=== PATIENT | female | born 1935 | race Hispanic/Latino ===

== ENCOUNTER → 2020-04-27 | Outpatient (CLI) | payer MEDICARE | END | disposition home or self-care (01) | LOC: SHCH 15:10 | PROVIDERS: ATTEND Internal Medicine Cardiovascular Disease | DX: I08.0 Rheumatic disorders of both mitral and aortic valves (principal); R55 Syncope and collapse | CPT/HCPCS: 93306 ==

== ENCOUNTER 2020-11-05 20:09 | Inpatient (IN) | payer MEDICARE ==
[~2020-11-05] VITALS: Ht 154.9 cm; Wt 67.2 kg
[~2020-11-05 20:09] MED LIST: ETOMIDATE 2 MG/ML 10 ML VIAL IVP ONE; ROCURONIUM BROMIDE 10MG/1ML 5ML VL IV ONE
[2020-11-05 20:35] LABS: BASOPHILS % (AUTO) 0.3 % (0.0-5.0); EOSINOPHILS % (AUTO) 1.3 % (0.0-8.0); HEMATOCRIT 29.5 % (36-48); LYMPHOCYTES % (AUTO) 13.2 % (21.0-51.0); MEAN CORPUSCULAR HEMOGLOBIN 29.9 pg (27.0-33.0); MEAN CORPUSCULAR HGB CONC 32.5 g/dL (32.0-36.0); MEAN CORPUSCULAR VOLUME 91.9 fL (79-99); MONOCYTES % (AUTO) 7.6 % (3.0-13.0); NEUTROPHILS % (AUTO) 77.2 % (40.0-77.0); PLATELET COUNT (AUTO) 117 K/uL (130-400); RED BLOOD CELL COUNT(AUTO) 3.21 MIL/uL (4.00-5.50); RED CELL DISTRIBUTION WIDTH 14.4 % (11.0-15.5); WHITE BLOOD COUNT (AUTO) 7.5 K/uL (4.8-10.8)
[2020-11-05 20:50] LABS: INR 1.22 (0.85-1.15); PROTHROMBIN TIME 13.1 SEC (9.6-11.6)
[2020-11-05 20:51] LABS: PARTIAL THROMBOPLASTIN TIME 28.6 SEC (26.3-35.5)
[2020-11-05 20:53] LABS: CREATININE 6.5 mg/dL (0.5-1.5); POTASSIUM 5.5 mmol/L (3.5-5.1)
[2020-11-05 20:57] LABS: BILIRUBIN,TOTAL 0.5 mg/dL (0.2-1.0); TOTAL PROTEIN, SERUM 6.3 g/dL (6.0-8.3)
[2020-11-05] MEDS ORDERED: FUROSEMIDE 10 MG/ML 2ML VIAL ONE (22:13)
[2020-11-05] MEDS ORDERED: DOBUTAMINE 250MG/D5 250ML 250 ML IV SCH (23:00)
[2020-11-05] MEDS ORDERED: ONDANSETRON HCL 4 MG/2 ML VIAL IV PRN (23:15)
[2020-11-05] MEDS ORDERED: ACETAMINOPHEN 325 MG TAB PO PRN (23:15)
[2020-11-05] MEDS ORDERED: NITROGLYCERIN 0.4 MG SL TAB SL PRN (23:15)
[2020-11-05] MEDS ORDERED: DiphenhydrAMINE HCL 50 MG/ML VIAL IV PRN (23:15)
[2020-11-05] MEDS ORDERED: GUAIFENESIN-DM 200/20 MG 10 ML PO PRN (23:15)
[2020-11-05] MEDS ORDERED: LACTULOSE 20 GM/30 ML UDCUP PO PRN (23:15)
[2020-11-05] MEDS: ATORVASTATIN CALCIUM 40 MG TABLET PO SCH (23:30)
[2020-11-05] MEDS ORDERED: DOBUTAMINE 250MG/D5 250ML 250 ML IV ONE (23:41)
[2020-11-06] VITALS (25 sets, daily range): BP systolic 82–145; BP diastolic 44–89
[2020-11-06] MEDS: ZOLPIDEM TARTRATE 5 MG TAB PO PRN (02:50)
[2020-11-06] MEDS: ACETAMINOPHEN 325 MG TAB PO PRN ×2 (02:51→17:09)
[2020-11-06] MEDS ORDERED: LISI2.5T2 PO (03:49)
[2020-11-06] MEDS ORDERED: METO25 PO (03:49)
[2020-11-06] MEDS ORDERED: FURO20TA4 PO (03:52)
[2020-11-06] MEDS ORDERED: AEC81 PO (03:52)
[2020-11-06] MEDS ORDERED: CLOP75TA32 PO (03:55)
[2020-11-06] MEDS ORDERED: ATOR40TA71 PO (03:55)
[2020-11-06] MEDS ORDERED: GABA-529 PO (03:56)
[2020-11-06] MEDS ORDERED: GLIP10TA9 PO (03:57)
[2020-11-06] MEDS ORDERED: SITA100T12 PO (03:59)
[2020-11-06] MEDS ORDERED: INSU100V37 SQ (04:13)
[2020-11-06] MEDS ORDERED: MORPHINE SULFATE 2 MG/ML 1ML SYG ONE (04:48)
[2020-11-06] MEDS ORDERED: DEXTROSE 50%-WATER 50 ML DISP.SYRIN IV ONE (06:59)
[2020-11-06] MEDS ORDERED: GLUCAGON 1MG KIT 1 MG ML IM PRN (07:00)
[2020-11-06] MEDS: INSULIN HUMULIN R 100 UNIT/ML 3ML SQ SCH ×3 (07:30→17:32)
[2020-11-06] MEDS: ASPIRIN 81MG TAB.CHEW PO SCH (09:00)
[2020-11-06] MEDS: FAMOTIDINE 20MG TAB 20 MG TAB PO SCH (09:00)
[2020-11-06] MEDS ORDERED: GABAPENTIN 100 MG CAPSULE PO SCH (09:00)
[2020-11-06] MEDS ORDERED: SODIUM POLYSTYRENE SULFONATE 15 GM/60 ML ML RC SCH (12:30)
[2020-11-06] MEDS: MIDODRINE HCL 5 MG TABLET PO SCH ×2 (14:00→20:16)
[2020-11-06] MEDS ORDERED: SODIUM CHLORIDE 0.9% 500ML 500 ML IV ONE (14:26)
[2020-11-06] MEDS ORDERED: NALOXONE HCL 0.4 MG/1 ML ML ONE (14:31)
[2020-11-06] MEDS ORDERED: NOREPINEPHRINE 4MG/NS 250ML 250 ML IV ONE (14:41)
[2020-11-06] MEDS ORDERED: FENTANYL CITRATE PF 0.05 MG/ML 1,000 MCG in SODIUM CHLORIDE 0.9% 100 ML IVPB SCH (14:45)
[2020-11-06] MEDS ORDERED: MIDAZOLAM 100MG-0.9% NS 100ML 100ML BAG IV ONE (14:45)
[2020-11-06] MEDS ORDERED: MIDAZOLAM 100MG-0.9% NS 100ML 100 ML IV SCH (15:15)
[2020-11-06] MEDS ORDERED: FENTANYL 2500MCG+NS 250ML 250 ML IV SCH (15:15)
[2020-11-06 15:23] LABS: ABG BASE EXCESS -4.4 mmol/L (-2.0-3.0); ABG HCO3 18.2 mmol/L (21.0-28.0); ABG OXYGEN SATURATION 99.3 % (95.0-99.0); ABG PCO2 26 mmHg (32-45)
[2020-11-06] MEDS: ZOSYN 3.375GM+NS 50ML 50 ML IV SCH (15:30)
[2020-11-06] MEDS ORDERED: CALCIUM GLUCONATE 2 GM in SODIUM CHLORIDE 0.9% 100 ML IV SCH (15:30)
[2020-11-06 17:01] LABS: HEMATOCRIT 29.5 % (36-48); MEAN CORPUSCULAR HEMOGLOBIN 30.1 pg (27.0-33.0); MEAN CORPUSCULAR HGB CONC 32.9 g/dL (32.0-36.0); MEAN CORPUSCULAR VOLUME 91.6 fL (79-99); RED BLOOD CELL COUNT(AUTO) 3.22 MIL/uL (4.00-5.50); RED CELL DISTRIBUTION WIDTH 14.4 % (11.0-15.5); WHITE BLOOD COUNT (AUTO) 11.8 K/uL (4.8-10.8)
[2020-11-06] MEDS ORDERED: INSULIN HUMULIN R 100 UNIT/ML 3ML IV SCH (17:15)
[2020-11-06] MEDS ORDERED: DEXTROSE 50%-WATER 25 GM/50 ML VIAL IV SCH (17:15)
[2020-11-06] MEDS ORDERED: SODIUM BICARB 50MEQ 50ML VIAL IV SCH ×2 (17:20→19:30)
[2020-11-06 17:24] LABS: POTASSIUM 5.1 mmol/L (3.5-5.1); THYROID STIMULATING HORMONE 3.65 uIU/mL (0.36-3.74)
[2020-11-06] MEDS: SODIUM CHLORIDE 0.9% 1000ML 1,000 ML IV SCH (18:12)
[2020-11-06] MEDS: ATORVASTATIN CALCIUM 40 MG TABLET PO SCH (20:14)
[2020-11-06 23:23] LABS: APPEARANCE,URINE Turbid (CLEAR); BILIRUBIN,URINE Negative (NEGATIVE); COLOR,URINE Orange (YELLOW); GLUCOSE, URINE (UA) Negative (NEGATIVE); KETONES,URINE Negative (NEGATIVE); LEUKOCYTE ESTERASE ,URINE Large (NEGATIVE); NITRATE,URINE Negative (NEGATIVE); OCCULT BLOOD,URINE Large (NEGATIVE); PROTEIN,URINE POS 2+ mg/dL (NEGATIVE); UROBILINOGEN,URINE 0.2 mg/dL (0.2-1.0)
[2020-11-06 23:25] LABS: SODIUM,URINE RANDOM 40 mmol/l (40-220)
[2020-11-06 23:33] LABS: WBC,URINE TNTC /HPF (0-1)
[2020-11-06 23:34] LABS: BACTERIA,URINE Few /HPF (None Seen); YEAST,URINE BUDDING Moderate /HPF (None Seen)
[2020-11-07] VITALS (41 sets, daily range): BP systolic 84–117; BP diastolic 48–96
[2020-11-07] MEDS: INSULIN HUMULIN R 100 UNIT/ML 3ML SQ SCH ×6 (00:31→23:47)
[2020-11-07] MEDS: ZOSYN 3.375GM+NS 50ML 50 ML IV SCH ×2 (03:01→15:03)
[2020-11-07 03:34] LABS: BASOPHILS % (AUTO) 0.2 % (0.0-5.0); EOSINOPHILS % (AUTO) 1.3 % (0.0-8.0); HEMATOCRIT 27.5 % (36-48); MEAN CORPUSCULAR HEMOGLOBIN 29.2 pg (27.0-33.0); MEAN CORPUSCULAR HGB CONC 32.7 g/dL (32.0-36.0); MEAN CORPUSCULAR VOLUME 89.3 fL (79-99); MONOCYTES % (AUTO) 7.5 % (3.0-13.0); NEUTROPHILS % (AUTO) 76.8 % (40.0-77.0); PLATELET COUNT (AUTO) 133 K/uL (130-400); RED BLOOD CELL COUNT(AUTO) 3.08 MIL/uL (4.00-5.50); RED CELL DISTRIBUTION WIDTH 14.5 % (11.0-15.5); WHITE BLOOD COUNT (AUTO) 10.3 K/uL (4.8-10.8)
[2020-11-07 03:46] LABS: % IRON SATURATION 13.6 % (22-44)
[2020-11-07 04:00] LABS: CREATININE 6.8 mg/dL (0.5-1.5); PHOSPHORUS 6.7 mg/dL (2.5-4.9); POTASSIUM 4.2 mmol/L (3.5-5.1)
[2020-11-07] MEDS: NOREPINEPHRINE 4MG/NS 250ML 250 ML IV SCH (04:19)
[2020-11-07] MEDS: SODIUM CHLORIDE 0.9% 1000ML 1,000 ML IV SCH (05:36)
[2020-11-07 06:45] LABS: ABG BASE EXCESS -0.7 mmol/L (-2.0-3.0); ABG HCO3 21.8 mmol/L (21.0-28.0); ABG OXYGEN SATURATION 97.6 % (95.0-99.0); ABG PCO2 30 mmHg (32-45)
[2020-11-07] MEDS: MIDODRINE HCL 5 MG TABLET PO SCH ×3 (08:22→21:10)
[2020-11-07] MEDS: FAMOTIDINE 20MG TAB 20 MG TAB PO SCH (08:23)
[2020-11-07] MEDS: ASPIRIN 81MG TAB.CHEW PO SCH (08:23)
[2020-11-07 11:24] LABS: INR 1.22 (0.85-1.15); PROTHROMBIN TIME 13.1 SEC (9.6-11.6)
[2020-11-07 11:26] LABS: PARTIAL THROMBOPLASTIN TIME 28.5 SEC (26.3-35.5)
[2020-11-07] MEDS ORDERED: EPOETIN ALFA-EPBX (ESRD) 10,000 UNIT/ML VIAL SQ SCH (11:45)
[2020-11-07] MEDS ORDERED: COMPOUND IV MISC 1 EACH IVSOLN MISC PRN (12:30)
[2020-11-07] MEDS: IRON SUCROSE COMPLEX 100 MG in SODIUM CHLORIDE 0.9% 50 ML IV SCH (12:39)
[2020-11-07] MEDS: DEXTROSE 50%-WATER 50 ML DISP.SYRIN IV PRN (13:17)
[2020-11-07] MEDS ORDERED: DEXTROSE 10%-WATER 1,000 ML IV SCH (13:45)
[2020-11-07] MEDS: ATORVASTATIN CALCIUM 40 MG TABLET PO SCH (21:10)
[2020-11-08] VITALS (23 sets, daily range): BP systolic 86–116; BP diastolic 36–81
[2020-11-08] MEDS: NOREPINEPHRINE 4MG/NS 250ML 250 ML IV SCH (02:43)
[2020-11-08] MEDS: ZOSYN 3.375GM+NS 50ML 50 ML IV SCH ×2 (02:44→14:55)
[2020-11-08 03:33] LABS: BASOPHILS % (AUTO) 0.3 % (0.0-5.0); EOSINOPHILS % (AUTO) 1.5 % (0.0-8.0); HEMATOCRIT 29.8 % (36-48); LYMPHOCYTES % (AUTO) 10.6 % (21.0-51.0); MEAN CORPUSCULAR HEMOGLOBIN 29.7 pg (27.0-33.0); MEAN CORPUSCULAR HGB CONC 32.9 g/dL (32.0-36.0); MEAN CORPUSCULAR VOLUME 90.3 fL (79-99); MONOCYTES % (AUTO) 6.7 % (3.0-13.0); NEUTROPHILS % (AUTO) 80.5 % (40.0-77.0); PLATELET COUNT (AUTO) 142 K/uL (130-400); RED CELL DISTRIBUTION WIDTH 15.1 % (11.0-15.5); WHITE BLOOD COUNT (AUTO) 12.8 K/uL (4.8-10.8)
[2020-11-08] MEDS: INSULIN HUMULIN R 100 UNIT/ML 3ML SQ SCH ×5 (03:43→20:27)
[2020-11-08 03:44] LABS: POTASSIUM 4.9 mmol/L (3.5-5.1)
[2020-11-08 04:30] LABS: ABG BASE EXCESS -2.3 mmol/L (-2.0-3.0); ABG HCO3 19.6 mmol/L (21.0-28.0); ABG OXYGEN SATURATION 97.6 % (95.0-99.0); ABG PCO2 27 mmHg (32-45)
[2020-11-08] MEDS: FLUCONAZOLE 200 MG/NS 100 ML 100 ML IV SCH (08:44)
[2020-11-08] MEDS: MIDODRINE HCL 5 MG TABLET PO SCH ×3 (08:45→20:28)
[2020-11-08] MEDS: ASPIRIN 81MG TAB.CHEW PO SCH (08:45)
[2020-11-08] MEDS: FAMOTIDINE 20MG TAB 20 MG TAB PO SCH (08:47)
[2020-11-08] MEDS: IRON SUCROSE COMPLEX 100 MG in SODIUM CHLORIDE 0.9% 50 ML IV SCH (08:47)
[2020-11-08] MEDS: SODIUM CHLORIDE 1,000 MG TAB PO SCH ×2 (11:43→20:28)
[2020-11-08] MEDS: ATORVASTATIN CALCIUM 40 MG TABLET PO SCH (20:28)
[2020-11-09] VITALS (28 sets, daily range): BP systolic 89–114; BP diastolic 49–70
[2020-11-09] MEDS: INSULIN HUMULIN R 100 UNIT/ML 3ML SQ SCH ×7 (00:31→23:10)
[2020-11-09] MEDS: NOREPINEPHRINE 4MG/NS 250ML 250 ML IV SCH (00:33)
[2020-11-09 02:08] LABS: BASOPHILS % (AUTO) 0.3 % (0.0-5.0); EOSINOPHILS % (AUTO) 1.6 % (0.0-8.0); HEMATOCRIT 28.7 % (36-48); LYMPHOCYTES % (AUTO) 14.6 % (21.0-51.0); MEAN CORPUSCULAR HEMOGLOBIN 29.5 pg (27.0-33.0); MEAN CORPUSCULAR HGB CONC 32.4 g/dL (32.0-36.0); MEAN CORPUSCULAR VOLUME 91.1 fL (79-99); NEUTROPHILS % (AUTO) 77.1 % (40.0-77.0); PLATELET COUNT (AUTO) 123 K/uL (130-400); RED BLOOD CELL COUNT(AUTO) 3.15 MIL/uL (4.00-5.50); RED CELL DISTRIBUTION WIDTH 15.3 % (11.0-15.5); WHITE BLOOD COUNT (AUTO) 11.3 K/uL (4.8-10.8)
[2020-11-09 02:15] LABS: CREATININE 7.1 mg/dL (0.5-1.5); POTASSIUM 4.1 mmol/L (3.5-5.1)
[2020-11-09 02:18] LABS: MAGNESIUM 2.1 mg/dL (1.80-2.40); PHOSPHORUS 6.3 mg/dL (2.5-4.9)
[2020-11-09] MEDS: PHENYLEPHRINE HCL 50 MG in SODIUM CHLORIDE 0.9% 245 ML IV PRN ×2 (02:35→19:18)
[2020-11-09 03:10] LABS: INR 1.36 (0.85-1.15); PROTHROMBIN TIME 14.4 SEC (9.6-11.6)
[2020-11-09 03:12] LABS: PARTIAL THROMBOPLASTIN TIME 36.1 SEC (26.3-35.5)
[2020-11-09] MEDS: ZOSYN 3.375GM+NS 50ML 50 ML IV SCH ×2 (03:34→15:11)
[2020-11-09] MEDS: MIDODRINE HCL 5 MG TABLET PO SCH ×3 (09:21→20:24)
[2020-11-09] MEDS: IRON SUCROSE COMPLEX 100 MG in SODIUM CHLORIDE 0.9% 50 ML IV SCH (09:21)
[2020-11-09] MEDS: ASPIRIN 81MG TAB.CHEW PO SCH (09:21)
[2020-11-09] MEDS: SODIUM CHLORIDE 1,000 MG TAB PO SCH ×2 (09:21→20:24)
[2020-11-09] MEDS: FLUCONAZOLE 200 MG/NS 100 ML 100 ML IV SCH (09:21)
[2020-11-09] MEDS: FAMOTIDINE 20MG TAB 20 MG TAB PO SCH (09:21)
[2020-11-09 16:16] LABS: APPEARANCE,URINE TURBID (CLEAR); BILIRUBIN,URINE SMALL (NEGATIVE); COLOR,URINE YELLOW (YELLOW); GLUCOSE, URINE (UA) NEGATIVE (NEGATIVE); KETONES,URINE NEGATIVE (NEGATIVE); LEUKOCYTE ESTERASE ,URINE LARGE (NEGATIVE); NITRATE,URINE NEGATIVE (NEGATIVE); OCCULT BLOOD,URINE LARGE (NEGATIVE); PROTEIN,URINE 100 mg/dL (NEGATIVE); UROBILINOGEN,URINE 0.2 mg/dL (0.2-1.0)
[2020-11-09 16:43] LABS: BACTERIA,URINE Moderate /HPF (None Seen); MUCUS,URINE Few LPF (None Seen); SQUAMOUS EPITHELIAL CELL,UR Rare /HPF (0-2); YEAST,URINE BUDDING Many /HPF (None Seen)
[2020-11-09] MEDS ORDERED: LIDOCAINE HCL 1% 20 ML VIAL ONE (16:53)
[2020-11-09] MEDS: ATORVASTATIN CALCIUM 40 MG TABLET PO SCH (20:24)
[2020-11-09] MEDS: INSULIN GLARGINE 100 UNITS/ML 10 ML VIAL SQ SCH (21:00)
[2020-11-10] VITALS (24 sets, daily range): BP systolic 85–114; BP diastolic 51–83
[2020-11-10] MEDS: ZOSYN 3.375GM+NS 50ML 50 ML IV SCH ×2 (02:58→15:21)
[2020-11-10] MEDS: INSULIN HUMULIN R 100 UNIT/ML 3ML SQ SCH ×5 (03:26→20:00)
[2020-11-10 04:57] LABS: BASOPHILS % (AUTO) 0.3 % (0.0-5.0); EOSINOPHILS % (AUTO) 2.1 % (0.0-8.0); HEMATOCRIT 26.1 % (36-48); LYMPHOCYTES % (AUTO) 12.4 % (21.0-51.0); MEAN CORPUSCULAR HEMOGLOBIN 29.4 pg (27.0-33.0); MEAN CORPUSCULAR HGB CONC 31.8 g/dL (32.0-36.0); MEAN CORPUSCULAR VOLUME 92.6 fL (79-99); MONOCYTES % (AUTO) 6.8 % (3.0-13.0); NEUTROPHILS % (AUTO) 78.1 % (40.0-77.0); PLATELET COUNT (AUTO) 105 K/uL (130-400); RED BLOOD CELL COUNT(AUTO) 2.82 MIL/uL (4.00-5.50); RED CELL DISTRIBUTION WIDTH 15.6 % (11.0-15.5)
[2020-11-10 05:13] LABS: CREATININE 7.2 mg/dL (0.5-1.5); POTASSIUM 4.4 mmol/L (3.5-5.1)
[2020-11-10] MEDS: SODIUM CHLORIDE 1,000 MG TAB PO SCH ×2 (08:45→20:27)
[2020-11-10] MEDS: FAMOTIDINE 20MG TAB 20 MG TAB PO SCH (08:45)
[2020-11-10] MEDS: IRON SUCROSE COMPLEX 100 MG in SODIUM CHLORIDE 0.9% 50 ML IV SCH (08:45)
[2020-11-10] MEDS: FLUCONAZOLE 200 MG/NS 100 ML 100 ML IV SCH (08:45)
[2020-11-10] MEDS: MIDODRINE HCL 5 MG TABLET PO SCH ×3 (08:45→20:27)
[2020-11-10] MEDS: ASPIRIN 81MG TAB.CHEW PO SCH (08:45)
[2020-11-10] MEDS: ATORVASTATIN CALCIUM 40 MG TABLET PO SCH (20:26)
[2020-11-10] MEDS: INSULIN GLARGINE 100 UNITS/ML 10 ML VIAL SQ SCH (21:00)
[2020-11-10] MEDS: PHENYLEPHRINE HCL 50 MG in SODIUM CHLORIDE 0.9% 245 ML IV PRN (22:11)
[2020-11-11] VITALS (24 sets, daily range): BP systolic 101–128; BP diastolic 54–94
[2020-11-11] MEDS: DEXTROSE 50%-WATER 50 ML DISP.SYRIN IV PRN (00:14)
[2020-11-11] MEDS: INSULIN HUMULIN R 100 UNIT/ML 3ML SQ SCH ×6 (03:07→20:00)
[2020-11-11] MEDS: ZOSYN 3.375GM+NS 50ML 50 ML IV SCH ×2 (03:07→16:32)
[2020-11-11 03:50] LABS: BASOPHILS % (AUTO) 0.2 % (0.0-5.0); HEMATOCRIT 27.1 % (36-48); LYMPHOCYTES % (AUTO) 14.4 % (21.0-51.0); MEAN CORPUSCULAR HEMOGLOBIN 29.6 pg (27.0-33.0); MEAN CORPUSCULAR HGB CONC 32.5 g/dL (32.0-36.0); MEAN CORPUSCULAR VOLUME 91.2 fL (79-99); MONOCYTES % (AUTO) 6.2 % (3.0-13.0); NEUTROPHILS % (AUTO) 73.7 % (40.0-77.0); PLATELET COUNT (AUTO) 102 K/uL (130-400); RED BLOOD CELL COUNT(AUTO) 2.97 MIL/uL (4.00-5.50); WHITE BLOOD COUNT (AUTO) 8.7 K/uL (4.8-10.8)
[2020-11-11 04:02] LABS: CREATININE 7.4 mg/dL (0.5-1.5); MAGNESIUM 2.2 mg/dL (1.80-2.40); PHOSPHORUS 6.1 mg/dL (2.5-4.9); POTASSIUM 4.1 mmol/L (3.5-5.1)
[2020-11-11 04:53] LABS: INR 1.34 (0.85-1.15); PROTHROMBIN TIME 14.2 SEC (9.6-11.6)
[2020-11-11 04:54] LABS: PARTIAL THROMBOPLASTIN TIME 34.9 SEC (26.3-35.5)
[2020-11-11] MEDS: FAMOTIDINE 20MG TAB 20 MG TAB PO SCH (09:15)
[2020-11-11] MEDS: FLUCONAZOLE 200 MG/NS 100 ML 100 ML IV SCH (09:15)
[2020-11-11] MEDS: SODIUM CHLORIDE 1,000 MG TAB PO SCH ×2 (09:15→21:09)
[2020-11-11] MEDS: ASPIRIN 81MG TAB.CHEW PO SCH (09:15)
[2020-11-11] MEDS: MIDODRINE HCL 5 MG TABLET PO SCH ×3 (09:15→21:09)
[2020-11-11] MEDS: IRON SUCROSE COMPLEX 100 MG in SODIUM CHLORIDE 0.9% 50 ML IV SCH (09:17)
[2020-11-11 16:07] LABS: ABG BASE EXCESS -7.2 mmol/L (-2.0-3.0); ABG HCO3 17.5 mmol/L (21.0-28.0); ABG OXYGEN SATURATION 96.6 % (95.0-99.0); ABG PCO2 33 mmHg (32-45)
[2020-11-11] MEDS: ATORVASTATIN CALCIUM 40 MG TABLET PO SCH (21:09)
[2020-11-11] MEDS: INSULIN GLARGINE 100 UNITS/ML 10 ML VIAL SQ SCH (21:15)
[2020-11-12] VITALS (27 sets, daily range): BP systolic 98–136; BP diastolic 34–83
[2020-11-12] MEDS: ZOSYN 3.375GM+NS 50ML 50 ML IV SCH ×2 (02:46→14:30)
[2020-11-12 02:47] LABS: ABG BASE EXCESS -17.1 mmol/L (-2.0-3.0); ABG HCO3 9.2 mmol/L (21.0-28.0); ABG OXYGEN SATURATION 98.1 % (95.0-99.0); ABG PCO2 24 mmHg (32-45)
[2020-11-12] MEDS ORDERED: SODIUM BICARB 8.4% 50ML SYRINGE IVP STA ×3 (03:00)
[2020-11-12] MEDS ORDERED: SODIUM BICARBONATE 650 MG TAB PO STA (03:00)
[2020-11-12] MEDS ORDERED: SODIUM BICARB 50MEQ 50ML VIAL 150 ML ONE (03:14)
[2020-11-12 04:30] LABS: BASOPHILS % (AUTO) 0.1 % (0.0-5.0); EOSINOPHILS % (AUTO) 0.3 % (0.0-8.0); HEMATOCRIT 29.5 % (36-48); LYMPHOCYTES % (AUTO) 4.9 % (21.0-51.0); MEAN CORPUSCULAR HEMOGLOBIN 29.7 pg (27.0-33.0); MEAN CORPUSCULAR HGB CONC 30.2 g/dL (32.0-36.0); MEAN CORPUSCULAR VOLUME 98.3 fL (79-99); MONOCYTES % (AUTO) 5.6 % (3.0-13.0); NEUTROPHILS % (AUTO) 88.5 % (40.0-77.0); PLATELET COUNT (AUTO) 93 K/uL (130-400); RED CELL DISTRIBUTION WIDTH 16.5 % (11.0-15.5)
[2020-11-12] MEDS: INSULIN HUMULIN R 100 UNIT/ML 3ML SQ SCH ×6 (04:31→20:28)
[2020-11-12 04:48] LABS: MAGNESIUM 2.5 mg/dL (1.80-2.40); PHOSPHORUS 8.5 mg/dL (2.5-4.9); POTASSIUM 5.6 mmol/L (3.5-5.1)
[2020-11-12 05:12] LABS: ABG BASE EXCESS -9.9 mmol/L (-2.0-3.0); ABG OXYGEN SATURATION 99.1 % (95.0-99.0); ABG PCO2 27 mmHg (32-45)
[2020-11-12] MEDS: SODIUM BICARBONATE 650 MG TAB PO SCH ×2 (08:20→20:21)
[2020-11-12] MEDS: FAMOTIDINE 20MG TAB 20 MG TAB PO SCH (08:20)
[2020-11-12] MEDS: ASPIRIN 81MG TAB.CHEW PO SCH (08:20)
[2020-11-12] MEDS: IRON SUCROSE COMPLEX 100 MG in SODIUM CHLORIDE 0.9% 50 ML IV SCH (08:20)
[2020-11-12] MEDS: SODIUM CHLORIDE 1,000 MG TAB PO SCH ×2 (08:20→20:21)
[2020-11-12] MEDS: MIDODRINE HCL 5 MG TABLET PO SCH ×3 (08:20→20:22)
[2020-11-12] MEDS: FLUCONAZOLE 200 MG/NS 100 ML 100 ML IV SCH (08:21)
[2020-11-12] MEDS: ATORVASTATIN CALCIUM 40 MG TABLET PO SCH (20:22)
[2020-11-12] MEDS: INSULIN GLARGINE 100 UNITS/ML 10 ML VIAL SQ SCH (20:27)
[2020-11-13] VITALS (21 sets, daily range): BP systolic 102–132; BP diastolic 59–84
[2020-11-13] MEDS: INSULIN HUMULIN R 100 UNIT/ML 3ML SQ SCH ×7 (00:05→23:43)
[2020-11-13] MEDS: ZOSYN 3.375GM+NS 50ML 50 ML IV SCH ×2 (02:55→14:19)
[2020-11-13 03:45] LABS: BASOPHILS % (AUTO) 0.2 % (0.0-5.0); EOSINOPHILS % (AUTO) 4.3 % (0.0-8.0); HEMATOCRIT 28.2 % (36-48); LYMPHOCYTES % (AUTO) 8.9 % (21.0-51.0); MEAN CORPUSCULAR HEMOGLOBIN 29.7 pg (27.0-33.0); MEAN CORPUSCULAR HGB CONC 31.2 g/dL (32.0-36.0); MEAN CORPUSCULAR VOLUME 95.3 fL (79-99); MONOCYTES % (AUTO) 6.1 % (3.0-13.0); NUCLEATED RED BLOOD CELLS 1.1 % (0.0-0.19); PLATELET COUNT (AUTO) 90 K/uL (130-400); RED BLOOD CELL COUNT(AUTO) 2.96 MIL/uL (4.00-5.50); RED CELL DISTRIBUTION WIDTH 17.3 % (11.0-15.5); WHITE BLOOD COUNT (AUTO) 9.2 K/uL (4.8-10.8)
[2020-11-13 04:02] LABS: CREATININE 7.8 mg/dL (0.5-1.5); MAGNESIUM 2.6 mg/dL (1.80-2.40); PHOSPHORUS 5.8 mg/dL (2.5-4.9); POTASSIUM 3.5 mmol/L (3.5-5.1)
[2020-11-13] MEDS: FLUCONAZOLE 200 MG/NS 100 ML 100 ML IV SCH (08:17)
[2020-11-13] MEDS: MIDODRINE HCL 5 MG TABLET PO SCH ×3 (08:17→20:28)
[2020-11-13] MEDS: FAMOTIDINE 20MG TAB 20 MG TAB PO SCH (08:18)
[2020-11-13] MEDS: ASPIRIN 81MG TAB.CHEW PO SCH (08:18)
[2020-11-13] MEDS: IRON SUCROSE COMPLEX 100 MG in SODIUM CHLORIDE 0.9% 50 ML IV SCH (08:18)
[2020-11-13] MEDS: SODIUM BICARBONATE 650 MG TAB PO SCH ×2 (08:18→20:28)
[2020-11-13] MEDS: SODIUM CHLORIDE 1,000 MG TAB PO SCH (08:19)
[2020-11-13] MEDS: ATORVASTATIN CALCIUM 40 MG TABLET PO SCH (20:28)
[2020-11-13] MEDS: INSULIN GLARGINE 100 UNITS/ML 10 ML VIAL SQ SCH (20:30)
[2020-11-14] VITALS (24 sets, daily range): BP systolic 101–135; BP diastolic 56–78
[2020-11-14] MEDS: ZOLPIDEM TARTRATE 5 MG TAB PO PRN (02:49)
[2020-11-14] MEDS: ZOSYN 3.375GM+NS 50ML 50 ML IV SCH ×2 (03:33→14:39)
[2020-11-14] MEDS: INSULIN HUMULIN R 100 UNIT/ML 3ML SQ SCH ×5 (03:56→20:10)
[2020-11-14] MEDS: ASPIRIN 81MG TAB.CHEW PO SCH (08:02)
[2020-11-14] MEDS: FLUCONAZOLE 200 MG/NS 100 ML 100 ML IV SCH (08:02)
[2020-11-14] MEDS: FAMOTIDINE 20MG TAB 20 MG TAB PO SCH (08:02)
[2020-11-14] MEDS: SODIUM BICARBONATE 650 MG TAB PO SCH ×2 (08:02→20:47)
[2020-11-14] MEDS: IRON SUCROSE COMPLEX 100 MG in SODIUM CHLORIDE 0.9% 50 ML IV SCH (08:02)
[2020-11-14] MEDS: MIDODRINE HCL 5 MG TABLET PO SCH ×3 (08:05→20:46)
[2020-11-14] MEDS: ATORVASTATIN CALCIUM 40 MG TABLET PO SCH (20:46)
[2020-11-14] MEDS: INSULIN GLARGINE 100 UNITS/ML 10 ML VIAL SQ SCH (20:51)
[2020-11-15] VITALS (13 sets, daily range): BP systolic 103–131; BP diastolic 58–75
[2020-11-15] MEDS: ZOSYN 3.375GM+NS 50ML 50 ML IV SCH ×2 (03:12→14:57)
[2020-11-15 03:36] LABS: BASOPHILS % (AUTO) 0.3 % (0.0-5.0); EOSINOPHILS % (AUTO) 1.4 % (0.0-8.0); HEMATOCRIT 28.6 % (36-48); LYMPHOCYTES % (AUTO) 6.5 % (21.0-51.0); MEAN CORPUSCULAR HEMOGLOBIN 30.3 pg (27.0-33.0); MEAN CORPUSCULAR HGB CONC 31.1 g/dL (32.0-36.0); MEAN CORPUSCULAR VOLUME 97.3 fL (79-99); MONOCYTES % (AUTO) 4.7 % (3.0-13.0); NEUTROPHILS % (AUTO) 86.3 % (40.0-77.0); NUCLEATED RED BLOOD CELLS 4.6 % (0.0-0.19); PLATELET COUNT (AUTO) 71 K/uL (130-400); RED BLOOD CELL COUNT(AUTO) 2.94 MIL/uL (4.00-5.50); RED CELL DISTRIBUTION WIDTH 18.2 % (11.0-15.5); WHITE BLOOD COUNT (AUTO) 10.2 K/uL (4.8-10.8)
[2020-11-15] MEDS: INSULIN HUMULIN R 100 UNIT/ML 3ML SQ SCH ×6 (03:37→21:41)
[2020-11-15 03:55] LABS: MAGNESIUM 2.7 mg/dL (1.80-2.40); PHOSPHORUS 6.4 mg/dL (2.5-4.9); POTASSIUM 3.8 mmol/L (3.5-5.1)
[2020-11-15 04:25] LABS: CREATININE 7.9 mg/dL (0.5-1.5)
[2020-11-15] MEDS: MIDODRINE HCL 5 MG TABLET PO SCH ×3 (08:15→20:36)
[2020-11-15] MEDS: ASPIRIN 81MG TAB.CHEW PO SCH (08:15)
[2020-11-15] MEDS: FAMOTIDINE 20MG TAB 20 MG TAB PO SCH (08:15)
[2020-11-15] MEDS: SODIUM BICARBONATE 650 MG TAB PO SCH ×2 (08:15→20:36)
[2020-11-15] MEDS: IRON SUCROSE COMPLEX 100 MG in SODIUM CHLORIDE 0.9% 50 ML IV SCH (08:16)
[2020-11-15] MEDS: FLUCONAZOLE 200 MG/NS 100 ML 100 ML IV SCH (08:16)
[2020-11-15] MEDS: ATORVASTATIN CALCIUM 40 MG TABLET PO SCH (20:36)
[2020-11-15] MEDS: INSULIN GLARGINE 100 UNITS/ML 10 ML VIAL SQ SCH (21:39)
[2020-11-16 00:16] VITALS: BP 95/58
[2020-11-16] MEDS: ZOSYN 3.375GM+NS 50ML 50 ML IV SCH ×2 (03:17→16:13)
[2020-11-16 04:01] LABS: BASOPHILS % (AUTO) 0.2 % (0.0-5.0); HEMATOCRIT 28.6 % (36-48); LYMPHOCYTES % (AUTO) 7.2 % (21.0-51.0); MEAN CORPUSCULAR HEMOGLOBIN 30.7 pg (27.0-33.0); MEAN CORPUSCULAR HGB CONC 31.1 g/dL (32.0-36.0); MEAN CORPUSCULAR VOLUME 98.6 fL (79-99); NUCLEATED RED BLOOD CELLS 5.5 % (0.0-0.19); PLATELET COUNT (AUTO) 62 K/uL (130-400); RED CELL DISTRIBUTION WIDTH 19.5 % (11.0-15.5)
[2020-11-16 04:16] VITALS: BP 100/60
[2020-11-16 04:35] LABS: MAGNESIUM 2.7 mg/dL (1.80-2.40); PHOSPHORUS 7.1 mg/dL (2.5-4.9); POTASSIUM 3.6 mmol/L (3.5-5.1)
[2020-11-16 04:37] LABS: BASOPHILS % (MANUAL) 1 % (0-2); EOSINOPHILS % (MANUAL) 1 % (1-6); LYMPHOCYTES % (MANUAL) 9 % (22-44); MAN.DIFF COMMENT-IMPRESSION MANUAL DIFFERENTIAL; MONOCYTES % (MANUAL) 5 % (2-9); SEGMENTED NEUTROPHILS % 84 % (40-70)
[2020-11-16 04:41] LABS: CREATININE 8.4 mg/dL (0.5-1.5)
[2020-11-16] MEDS: INSULIN HUMULIN R 100 UNIT/ML 3ML SQ SCH ×5 (05:08→18:00)
[2020-11-16 08:00] VITALS: BP 115/61
[2020-11-16] MEDS: SODIUM BICARBONATE 650 MG TAB PO SCH ×2 (09:00→21:00)
[2020-11-16] MEDS: FLUCONAZOLE 200 MG/NS 100 ML 100 ML IV SCH (10:00)
[2020-11-16] MEDS: MIDODRINE HCL 5 MG TABLET PO SCH ×3 (10:01→21:00)
[2020-11-16] MEDS: ASPIRIN 81MG TAB.CHEW PO SCH (10:01)
[2020-11-16] MEDS: FAMOTIDINE 20MG TAB 20 MG TAB PO SCH (10:01)
[2020-11-16] MEDS: IRON SUCROSE COMPLEX 100 MG in SODIUM CHLORIDE 0.9% 50 ML IV SCH (10:02)
[2020-11-16 12:00] VITALS: BP 114/60
[2020-11-16 16:00] VITALS: BP 108/58
[2020-11-16 20:16] VITALS: BP 130/67
[2020-11-16] MEDS: ATORVASTATIN CALCIUM 40 MG TABLET PO SCH (21:00)
[2020-11-16] MEDS: INSULIN GLARGINE 100 UNITS/ML 10 ML VIAL SQ SCH (21:02)
[2020-11-17 00:16] VITALS: BP 124/70
[2020-11-17] MEDS: ZOSYN 3.375GM+NS 50ML 50 ML IV SCH ×2 (03:30→15:30)
[2020-11-17 04:16] VITALS: BP 129/66
[2020-11-17 05:16] LABS: HEMATOCRIT 31.1 % (36-48); MEAN CORPUSCULAR HEMOGLOBIN 30.6 pg (27.0-33.0); MEAN CORPUSCULAR HGB CONC 30.5 g/dL (32.0-36.0); MEAN CORPUSCULAR VOLUME 100.3 fL (79-99); NUCLEATED RED BLOOD CELLS 2.6 % (0.0-0.19); PLATELET COUNT (AUTO) 47 K/uL (130-400); RED CELL DISTRIBUTION WIDTH 21.2 % (11.0-15.5); WHITE BLOOD COUNT (AUTO) 9.7 K/uL (4.8-10.8)
[2020-11-17 05:33] LABS: ALBUMIN 1.7 g/dL (3.5-5.0); BILIRUBIN,TOTAL 0.6 mg/dL (0.2-1.0); PHOSPHORUS 8.1 mg/dL (2.5-4.9); POTASSIUM 3.6 mmol/L (3.5-5.1); TOTAL PROTEIN, SERUM 5.7 g/dL (6.0-8.3)
[2020-11-17 05:37] LABS: CREATININE 8.3 mg/dL (0.5-1.5)
[2020-11-17] MEDS: INSULIN HUMULIN R 100 UNIT/ML 3ML SQ SCH ×3 (05:57→12:00)
[2020-11-17 06:23] LABS: BAND NEUTROPHILS % (MANUAL) 1 % (0-2); EOSINOPHILS % (MANUAL) 1 % (1-6); LYMPHOCYTES % (MANUAL) 7 % (22-44); MONOCYTES % (MANUAL) 6 % (2-9); SEGMENTED NEUTROPHILS % 85 % (40-70)
[2020-11-17 06:24] LABS: MAN.DIFF COMMENT-IMPRESSION MANUAL DIFFERENTIAL; PLATELET MORPHOLOGY COMMENT DECREASED
[2020-11-17 08:03] VITALS: BP 141/69
[2020-11-17] MEDS: IRON SUCROSE COMPLEX 100 MG in SODIUM CHLORIDE 0.9% 50 ML IV SCH (09:00)
[2020-11-17] MEDS: MIDODRINE HCL 5 MG TABLET PO SCH ×3 (09:18→21:00)
[2020-11-17] MEDS: ASPIRIN 81MG TAB.CHEW PO SCH (09:18)
[2020-11-17] MEDS: SODIUM BICARBONATE 650 MG TAB PO SCH (09:18)
[2020-11-17] MEDS: FLUCONAZOLE 200 MG/NS 100 ML 100 ML IV SCH (09:18)
[2020-11-17] MEDS: FAMOTIDINE 20MG TAB 20 MG TAB PO SCH (09:18)
[2020-11-17 11:47] VITALS: BP 156/52
[2020-11-17 16:00] VITALS: BP 122/42
[2020-11-17 20:06] VITALS: BP 114/52
[2020-11-17] MEDS: ATORVASTATIN CALCIUM 40 MG TABLET PO SCH (21:00)
[2020-11-18 00:21] VITALS: BP 155/52
[2020-11-18] MEDS: SODIUM BICARBONATE 650 MG TAB PO SCH ×3 (00:37→21:32)
[2020-11-18] MEDS: INSULIN GLARGINE 100 UNITS/ML 10 ML VIAL SQ SCH ×2 (00:39→21:34)
[2020-11-18] MEDS: ZOSYN 3.375GM+NS 50ML 50 ML IV SCH ×2 (03:30→15:30)
[2020-11-18 04:01] LABS: BASOPHILS % (AUTO) 0.1 % (0.0-5.0); EOSINOPHILS % (AUTO) 0.2 % (0.0-8.0); HEMATOCRIT 31.6 % (36-48); LYMPHOCYTES % (AUTO) 5.8 % (21.0-51.0); MEAN CORPUSCULAR HGB CONC 30.7 g/dL (32.0-36.0); MONOCYTES % (AUTO) 4.1 % (3.0-13.0); NEUTROPHILS % (AUTO) 89.3 % (40.0-77.0); PLATELET COUNT (AUTO) 56 K/uL (130-400); RED BLOOD CELL COUNT(AUTO) 3.13 MIL/uL (4.00-5.50); RED CELL DISTRIBUTION WIDTH 22.2 % (11.0-15.5); WHITE BLOOD COUNT (AUTO) 9.4 K/uL (4.8-10.8)
[2020-11-18 04:24] LABS: MAGNESIUM 2.8 mg/dL (1.80-2.40); PHOSPHORUS 9.1 mg/dL (2.5-4.9); POTASSIUM 3.5 mmol/L (3.5-5.1)
[2020-11-18 04:38] VITALS: BP 129/48
[2020-11-18 04:58] LABS: CREATININE 8.5 mg/dL (0.5-1.5)
[2020-11-18] MEDS: ASPIRIN 81MG TAB.CHEW PO SCH (07:38)
[2020-11-18] MEDS: FAMOTIDINE 20MG TAB 20 MG TAB PO SCH (07:39)
[2020-11-18 08:00] VITALS: BP 136/70
[2020-11-18] MEDS: FLUCONAZOLE 200 MG/NS 100 ML 100 ML IV SCH (10:16)
[2020-11-18] MEDS: MIDODRINE HCL 5 MG TABLET PO SCH ×3 (10:16→21:32)
[2020-11-18] MEDS: IRON SUCROSE COMPLEX 100 MG in SODIUM CHLORIDE 0.9% 50 ML IV SCH (10:49)
[2020-11-18 12:00] VITALS: BP 124/65
[2020-11-18 16:00] VITALS: BP 121/58
[2020-11-18 20:34] VITALS: BP 109/55
[2020-11-18] MEDS: ATORVASTATIN CALCIUM 40 MG TABLET PO SCH (21:32)
[2020-11-19 00:20] VITALS: BP 103/39
[2020-11-19] MEDS: INSULIN HUMULIN R 100 UNIT/ML 3ML SQ SCH ×3 (00:55→12:00)
[2020-11-19] MEDS: ZOSYN 3.375GM+NS 50ML 50 ML IV SCH ×2 (03:51→15:38)
[2020-11-19 05:16] VITALS: BP 145/56
[2020-11-19 08:22] VITALS: BP 107/56
[2020-11-19] MEDS: FLUCONAZOLE 200 MG/NS 100 ML 100 ML IV SCH (09:36)
[2020-11-19] MEDS: SODIUM BICARBONATE 650 MG TAB PO SCH (09:36)
[2020-11-19] MEDS: IRON SUCROSE COMPLEX 100 MG in SODIUM CHLORIDE 0.9% 50 ML IV SCH (09:37)
[2020-11-19] MEDS: ASPIRIN 81MG TAB.CHEW PO SCH (09:37)
[2020-11-19] MEDS: FAMOTIDINE 20MG TAB 20 MG TAB PO SCH (09:37)
[2020-11-19] MEDS: MIDODRINE HCL 5 MG TABLET PO SCH ×2 (09:37→14:19)
[2020-11-19 12:20] VITALS: BP 134/59
[2020-11-19 16:02] VITALS: BP 159/67
[2020-11-19 20:00] VITALS: BP 128/68
[2020-11-19] MEDS: ATORVASTATIN CALCIUM 40 MG TABLET PO SCH (21:44)
[2020-11-19] MEDS: INSULIN GLARGINE 100 UNITS/ML 10 ML VIAL SQ SCH (21:47)
[2020-11-20] VITALS: BP 101/62
[2020-11-20 04:00] VITALS: BP 111/63
[2020-11-20 05:28] LABS: CREATININE 7.8 mg/dL (0.5-1.5); POTASSIUM 3.3 mmol/L (3.5-5.1)
[2020-11-20] MEDS: INSULIN HUMULIN R 100 UNIT/ML 3ML SQ SCH ×4 (05:59→17:14)
[2020-11-20 08:00] VITALS: BP 115/60
[2020-11-20] MEDS: FAMOTIDINE 20MG TAB 20 MG TAB PO SCH (08:57)
[2020-11-20] MEDS: IRON SUCROSE COMPLEX 100 MG in SODIUM CHLORIDE 0.9% 50 ML IV SCH (08:57)
[2020-11-20] MEDS: ASPIRIN 81MG TAB.CHEW PO SCH (09:00)
[2020-11-20 12:23] VITALS: BP 129/94
[2020-11-20] MEDS ORDERED: GLYCOPYRROLATE 1 MG/5 ML SYRINGE IV PRN (17:00)
[2020-11-20] MEDS ORDERED: LORAZEPAM 2 MG/ML 1 ML VIAL IVP PRN (17:00)
[2020-11-20] MEDS: INSULIN GLARGINE 100 UNITS/ML 10 ML VIAL SQ SCH (20:05)
[2020-11-20] MEDS: BALSAM PERU/CASTOR OIL 60 GM TUBE TP SCH (20:10)
[2020-11-21 08:00] VITALS: BP 133/68
[2020-11-21] MEDS: BALSAM PERU/CASTOR OIL 60 GM TUBE TP SCH ×2 (09:00→20:52)
[2020-11-21 19:58] VITALS: BP 94/48
[2020-11-21] MEDS: INSULIN GLARGINE 100 UNITS/ML 10 ML VIAL SQ SCH (20:52)
[2020-11-21] MEDS: MORPHINE SULFATE 2 MG/ML 1ML SYG IM PRN (23:22)
[2020-11-22] MEDS: BALSAM PERU/CASTOR OIL 60 GM TUBE TP SCH ×2 (09:00→21:00)
[2020-11-22 10:31] VITALS: BP 102/55
[2020-11-22] MEDS: MORPHINE SULFATE 2 MG/ML 1ML SYG IM PRN (11:49)
[2020-11-22 16:18] VITALS: BP 83/47
[2020-11-22 20:00] VITALS: BP 89/54
[2020-11-22] MEDS: INSULIN GLARGINE 100 UNITS/ML 10 ML VIAL SQ SCH (21:00)
[2020-11-23] MEDS: MORPHINE SULFATE 2 MG/ML 1ML SYG IM PRN ×2 (00:29→13:39)
[2020-11-23 07:12] VITALS: BP 74/37
== END 2020-11-23 14:00 | disposition hospice, home (50) | DRG 207 ==
LOC: EDH 20:09 → UNDOADMOB 22:32 → OBSVTOIN 22:32 → INTOOBSV 22:32 → EDHIP 22:32 → 4CH 11-06 02:00 → 2DH 11-06 15:04 → 4CH 11-06 15:04 → 4DH 11-15 09:18 → 3CH 11-22 15:35
PROVIDERS: ADMIT Internal Medicine; ATTEND Internal Medicine
PROC: 0BH17EZ Insertion of Endotracheal Airway into Trachea, Via Natural or Artificial Opening (ICD-10-PCS; principal; 2020-11-06)
PROC: 5A1955Z Respiratory Ventilation, Greater than 96 Consecutive Hours (ICD-10-PCS; 2020-11-06)
PROC: 05HY33Z Insertion of Infusion Device into Upper Vein, Percutaneous Approach (ICD-10-PCS; 2020-11-06)
PROC: 5A12012 Performance of Cardiac Output, Single, Manual (ICD-10-PCS; 2020-11-06)
PROC: 0W9930Z Drainage of Right Pleural Cavity with Drainage Device, Percutaneous Approach (ICD-10-PCS; 2020-11-09)
PROC: 5A09557 Assistance with Respiratory Ventilation, Greater than 96 Consecutive Hours, Continuous Positive Airway Pressure (ICD-10-PCS; 2020-11-12)
DX: J96.01 Acute respiratory failure with hypoxia (principal); A41.9 Sepsis, unspecified organism; I50.23 Acute on chronic systolic (congestive) heart failure; E43 Unspecified severe protein-calorie malnutrition; I46.9 Cardiac arrest, cause unspecified; R65.21 Severe sepsis with septic shock; G92 Toxic encephalopathy; N18.6 End stage renal disease; I13.2 Hypertensive heart and chronic kidney disease with heart failure and with stage 5 chronic kidney disease, or end stage renal disease; I24.9 Acute ischemic heart disease, unspecified; E87.1 Hypo-osmolality and hyponatremia; N39.0 Urinary tract infection, site not specified; I42.9 Cardiomyopathy, unspecified; N17.9 Acute kidney failure, unspecified; E87.0 Hyperosmolality and hypernatremia; E11.22 Type 2 diabetes mellitus with diabetic chronic kidney disease; E11.649 Type 2 diabetes mellitus with hypoglycemia without coma; I25.10 Atherosclerotic heart disease of native coronary artery without angina pectoris; I35.0 Nonrheumatic aortic (valve) stenosis; E87.5 Hyperkalemia; I44.7 Left bundle-branch block, unspecified; E78.5 Hyperlipidemia, unspecified; Z91.15 Patient's noncompliance with renal dialysis; D64.9 Anemia, unspecified; L89.152 Pressure ulcer of sacral region, stage 2; R62.7 Adult failure to thrive; Z51.5 Encounter for palliative care; R53.81 Other malaise; Z20.822 Contact with and (suspected) exposure to COVID-19; Z66 Do not resuscitate; Z68.28 Body mass index [BMI] 28.0-28.9, adult; Z79.4 Long term (current) use of insulin; Z79.82 Long term (current) use of aspirin; Z83.3 Family history of diabetes mellitus; Z79.899 Other long term (current) drug therapy; Z95.1 Presence of aortocoronary bypass graft; Z90.49 Acquired absence of other specified parts of digestive tract
CPT/HCPCS: 36415; 36600; 70450; 71045; 74176; 80048; 80053; 81001; 82435; 82533; 82803; 82947; 82948; 83540; 83550; 83605; 83735; 83880; 84100; 84132; 84295; 84300; 84443; 84484; 85018; 85025; 85027; 85610; 85730; 87040; 87088; 87426; 92950; 93005; 93306; 93356; 94002; 94003; 94660; G0378; J0610; J1200; J1250; J1450; J1756; J1815; J1940; J2250; J2310; J2370; J2543; J3490; J7030; J7040; J7050; J7070; U0003